=== PATIENT | male | born 1985 | race Asian ===

== ENCOUNTER 2020-05-16 01:04 | Emergency (ER) | payer BC ==
[~2020-05-16] VITALS: Ht 180.3 cm; Wt 79.5 kg
[2020-05-16 02:52] VITALS: BP 126/74; PULSE 76; TEMP 98.9
== END 2020-05-16 02:53 | disposition home or self-care (01) ==
LOC: COL.ER 01:04
DX: S61.412A Laceration without foreign body of left hand, initial encounter (principal); Z23 Encounter for immunization; W27.0XXA Contact with workbench tool, initial encounter

== ENCOUNTER → 2020-05-30 | Outpatient (CLI) | payer BC ==
[2020-05-30 10:07] VITALS: BP 117/83; PULSE 81; TEMP 98
== END ==
LOC: COL.ER 09:58
DX: Z48.02 Encounter for removal of sutures (principal)